=== PATIENT | female | born 1960 | race Caucasian/White ===

== ENCOUNTER 2018-03-02 14:47 | Emergency (ER) | payer MEDICARE ==
[2018-03-02 15:39] VITALS: BP 115/70
--- NOTE | 2018-03-02 16:31 | UC ---
Upper Extremity HPI - HPI Summary HPI Summary: Patient states that she slipped on her mother's wet deck yesterday causing her to fall backwards she reached out with her right arm to break her fall. She states that she injured her arm she is complaining of pain to the right shoulder and the right upper arm. She states that she is unable to raise the arm or pressure hair. She denies striking her head she denies any neck or back pain. She denies any other injuries offers no other complaints. - History of Current Complaint Chief Complaint: UCUpperExtremity Stated Complaint: FELL-RIGHT ARM COMPLAINT Time Seen by Provider: 03/02/18 16:12 Hx Obtained From: Patient Hx Last Menstrual Period: N/A Onset/Duration: Sudden Onset Pain Intensity: 7 Aggravating Factor(s): Movement - Allergies/Home Medications Allergies/Adverse Reactions: Allergies Allergy/AdvReac Type Severity Reaction Status Date / Time No Known Allergies Allergy Verified 03/02/18 15:32 Home Medications: Home Medications NK [No Home Medications Reported] 03/02/18 [History Confirmed 03/02/18] PMH/Surg Hx/FS Hx/Imm Hx Previously Healthy: Yes - Surgical History Surgical History: Yes Surgery Procedure, Year, and Place: C SECTION - Family History Known Family History: Positive: None - Social History Occupation: Works From/At Home - [employer] Alcohol Use: Occasionally Substance Use Type: None Smoking Status (MU): Never Smoked Tobacco - Immunization History Most Recent Tetanus Shot: UTD Vaccination Up to Date: Yes Review of Systems Constitutional: Negative Skin: Negative Eyes: Negative ENT: Negative Respiratory: Negative Cardiovascular: Negative Gastrointestinal: Negative Genitourinary: Negative Motor: Negative Neurovascular: Negative Musculoskeletal: Other: - Right shoulder pain Neurological: Negative Psychological: Negative Is Patient Immunocompromised?: No All Other Systems Reviewed And Are Negative: Yes Physical Exam Triage Information Reviewed: Yes Appearance: Well-Appearing Vital Signs: Initial Vital Signs Temp 97 F 03/02/18 15:32 Pulse 72 03/02/18 15:32 Resp 16 03/02/18 15:32 BP 115/70 03/02/18 15:32 Pulse Ox 99 03/02/18 15:32 Vital Signs Reviewed: Yes Eyes: Positive: Conjunctiva Clear ENT: Positive: Normal ENT inspection Neck: Positive: Supple, Nontender, No Lymphadenopathy Respiratory: Positive: Chest non-tender, Lungs clear, Normal breath sounds Cardiovascular: Positive: RRR, No Murmur Abdomen Description: Positive: Nontender, No Organomegaly, Soft Bowel Sounds: Positive: Present Musculoskeletal: Positive: Other: - Head is normocephalic atraumatic. Cervical , thoracic and lumbar spine are without deformity or tenderness. Right upper extremity compared to the left shows no gross deformity swelling or discoloration. The right shoulder girdle has generalized tenderness to palpation as does the right upper arm but there is no crepitation or instability. Range of motion of the shoulder is limited in all directions due to pain but patient also notes that she is physically unable to raise the arm in an abduction manner much beyond 15. The elbow, forearm, wrist and hand are atraumatic in the hand has full sensorivascular motor function. Neurological: Positive: Alert Psychological: Positive: Age Appropriate Behavior Skin Exam: Normal Diagnostics - Radiology No standard instances Radiology Interpretation Completed By: Radiologist - R shoulder and upper arm= nad Upper Extremity Course/Dx - Course Course Of Treatment: no fx or dislocation. pe concerning for rotator cuff injury. - Differential Dx/Diagnosis Provider Diagnoses: Acute R shoulder/upper arm pain. Possible roataor cuff injury Discharge - Sign-Out/Discharge Documenting (check all that apply): Patient Departure All imaging exams completed and their final reports reviewed: Yes - Discharge Plan Condition: Stable Disposition: HOME Patient Education Materials: Shoulder Pain (ED), Rotator Cuff Injury (ED) Referrals: Ponce Tai MD [Medical Doctor] - As Soon As Possible Additional Instructions: SLING FOR COMFORT - Billing Disposition and Condition Condition: STABLE Disposition: Home
--- NOTE | 2018-03-02 16:41 | RAD ---
INDICATION: Right shoulder injury. TECHNIQUE: 4 views of the right shoulder were obtained. FINDINGS: The bones are in normal alignment. No fracture is seen. Joint spaces appear maintained. IMPRESSION: NO EVIDENCE OF FRACTURE.
--- NOTE | 2018-03-02 16:42 | RAD ---
INDICATION: Right humerus injury. TECHNIQUE: 2 views of the right humerus were obtained. FINDINGS: The bones are in normal alignment. No fracture is seen. IMPRESSION: NO EVIDENCE FOR FRACTURE.
== END 2018-03-02 16:56 | disposition home or self-care (01) ==
LOC: UCCORT 14:47
DX: M25.511 Pain in right shoulder (principal); M79.621 Pain in right upper arm; W01.0XXA Fall on same level from slipping, tripping and stumbling without subsequent striking against object, initial encounter; Y93.89 Activity, other specified; Y92.008 Other place in unspecified non-institutional (private) residence as the place of occurrence of the external cause
CPT/HCPCS: 99201; G0463